=== PATIENT | male | born 1960 | race Caucasian/White ===

== ENCOUNTER → 2018-08-29 08:22 | Outpatient (CLI) | payer BC ==
--- NOTE | 2018-09-01 10:54 | ST ---
PATIENT:RICARDO COREAS MEDICAL RECORD: [id number] SEX: M [facility] ORDER #: ADMISSION DATE: 08/29/18 AGE OF PATIENT: 58 REFERRING PHYSICIAN: INTERPRETING PHYSICIAN: MCKINLEY ALFREDO MD DATE OF SERVICE: 08/29/2018 PROCEDURE: Nuclear stress test. INDICATION: Angina, hypertension, and hyperlipidemia. He was exercised on a standard Addison protocol for 8 minutes achieving greater than 85% max target heart rate response with 33 mCi of sestamibi injected at peak stress, 11 mCi used previously for rest images. FINDINGS: Gated SPECT reveals a preserved ejection fraction of 54% with good wall motioning and thickening and brightening throughout all segments. SPECT imaging: Cardiolite was used as myocardial perfusion agent. There is reversibility anteriorly as well as inferiorly. This includes the basal, mid, apical, anterior segments as well as the basal, mid, apical, inferior segments. The degree of reversibility is mild. The amount of myocardium involved is very large. OVERALL IMPRESSION: This is an abnormal nuclear stress test. Reversibility inferiorly and anteriorly with preserved ejection fraction suggestive of hemodynamically significant coronary disease and possibly multivessel disease. We will proceed with coronary angiography as followup study. TRANSINT:[id number] Voice Confirmation ID: [id number] DOCUMENT ID: [id number] MCKINLEY ALFREDO MD at 1054 CC: [id number] DICTATION DATE: 08/31/18 1159 [employer]AIL [employer] RESTAURANT ASSOCIATE: 09/01/18 0131 DEP CLI 08/29/18 [place] [id number] [place] [id number]
== END | disposition home or self-care (01) ==
LOC: D.HCCARDIO 08:22
PROVIDERS: ATTEND Internal Medicine Interventional Cardiology
DX: Z03.89 Encounter for observation for other suspected diseases and conditions ruled out (principal)

== ENCOUNTER 2018-09-19 07:25 | Outpatient (CLI) | payer BC ==
[~2018-09-19] VITALS: Ht 188 cm; Wt 98.6 kg
--- NOTE | ~2018-09-19 | HEMODYNAMI ---
PATIENT:POONAM COREAS MEDICAL RECORD: [id number] : 56 LOCATION:D.CAT ADMISSION DATE: 09/19/18 Generatedon:09/19/20189:31 Patient name: POONAM COREAS Patient #: [id number] SSN: : 1960 Date of study: 09/19/2018 Page: Of Hemodynamic Procedure Report Patient Data Patient Demographics Procedure consent was obtained First Name: POONAM Gender: Male Last Name: JOSS : 1960 [facility] Initial: KIMMY Age: 58 year(s) ANA Race: Unknown Patient #: [id number] Additional ID: [id number] Contact details [address]: [address] [place] [address] State: [place] City: [place] Zip code: [address] Past Medical History Allergies: No known allergies Admission Admission Data Admission Date: 09/19/2018 Admission Time: 7:25 Admit Source: Other Lab Results Lab Result Date: 09/19/2018 Lab Result Time: 0:00 Biochemistry Name Units Result Min Max BUN mg/dl 8 --(*---)-- 7 18 Creatinine mg/dl 1.4 --(----)*- 0.6 1.3 CBC Name Units Result Min Max Hemoglobin g/dl 15.1 --(-*--)-- 13.5 17.5 Procedure Procedure Types Cath Procedure Diagnostic Procedure [facility] w/Coronaries FFR/IVUS Intra-Coronary IVUS Initial PCI Procedure Coronary Stent Coronary Stent Initial Procedure Description Procedure Date Procedure Date: 09/19/2018 Procedure Start Time: 9:10 Procedure End Time: 9:28 Procedure Staff Name Function Kelvin Recio MD Performing Physician Ann Trevizo RT Monitor Armando Corado RT Scrub Jeanmarie Block RN Nurse Procedure Data Cath Procedure Fluoroscopy Diagnostic fluoroscopy Total fluoroscopy Time: 5 time: 5 min min Diagnostic fluoroscopy Total fluoroscopy dose: 834 dose: 834 mGy mGy Contrast Material Contrast Material Type Amount (ml) Isovue 300 92 Entry Location Entry Primary Successful Side Size Upsize Upsize Entry Closure Bay ccessful Closure Location (Fr) 1 (Fr) 2 (Fr) Remarks Device Remarks Radial Right 6 Fr Mechanical TR artery Short Compression Estimated blood loss: 10 ml Diagnostic catheters Device Type Used For End Catheter Placement DIAGNOSTIC [place] 110cm 5 Procedure Fr catheter ([id number]) Procedure Complications No complications Procedure Medications Medication Administration Route Dosage 0.9% NaCl I.V. 100 ml/hr Oxygen etCO2 Nasal cannula 2 l/min Heparin Flush Bag added to field 2 bags (1000units/500ml NS) Lidocaine 2% added to field 20 Radial Cocktail added to field 1 syringe (Verapomil 2mg/Nitro 400mcg/Heparin 1500units) Radial Cocktail I.A. 1 syringe (Verapomil 2mg/Nitro 400mcg/Heparin 1500units) Versed I.V. Fentanyl I.V. 100 mcg Heparin Bolus I.V. 4000 units Integrilin (Bolus I.V. 9 ml 2mg/ml) Integrilin (Bolus wasted 1 ml 2mg/ml) Plavix P.O. 600 mg Hemodynamics Rest HGB: 15.1 (g/dl) Heart Rate: 66 (bpm) Pressure Samples Time Site Value (mmHg) Purpose Heart Use Rate(bpm) 9:12 LV 94/-14,10 Snapshot 62 9:12 AO 91/62(76) Pullback 63 9:12 LV 110/8,14 Pullback 63 Gradients Valve Time Site 1 Site 2 Mean SEP/DFP Peak To Heart Use (mmHg) (sec/min) Peak Rate (mmHg) (bpm) Aortic 9:12 LV AO 13 20 19 63 110/8,14 91/62(76) Calculations Valve P-P Mean Valve Index Valve Source Name Gradient Area Flow (cm2) Aortic 19 13 19 13 Snapshots Pre Cath Intra NCS Post Cath Vital Signs Time Heart Resp SPO2 etCO2 NIBP (mmHg) Rhythm Pain Sedation Rate (ipm) (%) (mmHg) Status Level (bpm) 9:00:50 62 19 94 29.3 156/91(106) NSR 0 (11) 10(A) , No pain 9:05:04 64 19 95 23.2 151/86(130) NSR 0 (11) 10(A) , No pain 9:09:20 59 10 96 31.5 137/81(112) NSR 0 (11) 10(A) , No pain 9:13:36 60 17 95 39 118/67(88) NSR 0 (11) 9(A) , No pain 9:17:40 62 18 96 10.5 127/80(97) NSR 0 (11) 9(A) , No pain 9:21:48 61 18 96 10.5 129/79(107) NSR 0 (11) 9(A) , No pain 9:25:56 59 19 96 39 136/82(110) NSR 0 (11) 9(A) , No pain Medications Time Medication Route Dose Verified Delivered Reason Note s Effectiveness by by 8:58:54 0.9% NaCl I.V. 100 Jeanmarie Jeanmarie Per physician ml/hr Mckayla Block RN RN 8:59:07 Oxygen etCO2 2 l/min Jeanmarie Jeanmarie for low 02 sats Nasal Mckayla Block cannula RN RN 8:59:19 Heparin Flush added 2 bags Jeanmarie Jeanmarie used for Bag to Mckayla Block procedure (1000units/500ml field MCADAMS RN NS) 8:59:28 Lidocaine 2% added 20ml Jeanmarie Jeanmarie for local to vial Lorpanda Block anesthetic field MCADAMS RN 8:59:38 Radial Cocktail added 1 Jeanmarie Jeanmarie used for (Verapomil to syringe Mckayla Block procedure 2mg/Nitro field MCADAMS RN 400mcg/Heparin 1500units) 9:10:03 Fentanyl I.V. 100 mcg Jeanmarie Jeanmarie for sedation Mckayla Block RN RN 9:10:56 Versed I.V. Jeanmarie Jeanmarie for sedation Mckayla Block RN RN 9:11:19 Radial Cocktail I.A. 1 Jeanmarie Kelvin for (Verapomil syringe Mckayla Recio MD vasodilation 2mg/Nitro RN 400mcg/Heparin 1500units) 9:23:29 Heparin Bolus I.V. 4000 Jeanmarie Jeanmarie for units Mckayla Block anticoagulation RN RN 9:23:44 Integrilin I.V. 9 ml Jeanmarie Jeanmarie for (Bolus 2mg/ml) Mckayla Block antiplatelet RN RN therapy 9:23:56 Integrilin wasted 1 ml Jeanmarie Jeanmarie to sharp's (Bolus 2mg/ml) Mckayla Block RN RN 9:27:15 Plavix P.O. 600 mg Jeanmarie Jeanmarie for Mckayla Block antiplatelet RN RN therapy Procedure Log Time Note 8:31:58 Informed consent obtained and on chart 8:32:01 Admit Source: Other 8:: Diagnostic Cath status Elective 8:32:30 Time tracking: Regular hours (M-F 7:00 - 5:00) 8:32:34 Plan of Care:Hemodynamics will remain stable., Cardiac rhythm will remain stable., Comfort level will be maintained., Respiratory function will remain adequate., Patient/ family verbilizes understanding of procedure., Procedure tolerated without complication., Recovers from procedure without complications.. 8:33:12 H&P Date Dictated: 09/19/2018 New H&P dictated by physician.. 8:58:54 0.9% NaCl 100 ml/hr I.V. was administered by Jeanmarie Block RN; Per physician; 8:59:07 Oxygen 2 l/min etCO2 Nasal cannula was administered by Jeanmarie Block RN; for low 02 sats; 8:59:19 Heparin Flush Bag (1000units/500ml NS) 2 bags added to field was administered by Jeanmarie Block RN; used for procedure; 8:59:28 Lidocaine 2% 20ml vial added to field was administered by Jeanmarie Block RN; for local anesthetic; 8:59:38 Radial Cocktail (Verapomil 2mg/Nitro 400mcg/Heparin 1500units) 1 syringe added to field was administered by Jeanmarie Block RN; used for procedure; 8:59:40 Patient received from Pre/Post Procedure Room to [facility] 2 Alert and oriented. Tansferred to table in Supine position. 8:59:42 Warm blankets applied, and isaiah hugger turned on for patient comfort. 8:59:42 Vital chart was started 8:59:43 Correct patient and procedure confirmed by team. 8:59:44 ECG and BP/O2 sat monitors applied to patient. 8:59:48 Baseline sample Acquired. 9:00:27 Rhythm: sinus rhythm 9:00:29 Full Disclosure recording started 9:00:37 Family in waiting room. 9:00:39 Patient NPO since Midnight. 9:00:52 Patient allergic to No known allergies 9:01:22 Is the patient allergic to Iodine/contrast media? No. 9::25 Was the patient premedicated? Yes 9:01:27 Is patient on blood thinner?No 9:01:44 ACC The patient was administered the following blood thiners within the last 24 hours: None 9:01:46 Patient diabetic? No. 9::53 Snore? Yes 9:01:55 Sleep apnea? No 9:02:02 Pre procedure: right dorsailis pedis pulse 2+ Normal; easily identifiable; not easily obliterated 9:02:12 IV patent on arrival in left forearm with 0.9% NaCl at [facility]. 9:04: Lab Result : Creatinine 1.4 mg/dl 9:04: Lab Result : BUN 8 mg/dl 9:04: Lab Result : Hemoglobin 15.1 g/dl 9:04:05 Lab results completed and on chart. 9:04:09 Right Radial & Right Groin area was prepped with chlora-prep and draped in sterile fashion 9:04:13 Alarms reviewed by R. N. 9:04:14 Sharps counted by scrub and verified by R.N. 9:04:16 Physician paged 9:07:18 Zero performed for pressure channel P1 9:09:34 Physician arrived 9:09:35 --------ALL STOP TIME OUT------ 9:09:35 Final Timeout: patient, procedure, and site verified with staff and physician. All members of the team are in agreement. 9:09:38 Right Radial & Right Groin site verified by team. 9:09:42 Maximum allowable Isovue 300 dose 300ml. Physician notified. (300ml for normal creatinines. For patients with creatinine of 1.7 or higher multiply weight(kg) x 5 divided by creatinine.) 9:09:47 Fire Safety Assessment: A--An alcohol-based skin anteseptic being used preoperatively., C--Open oxygen or nitrous oxide is being used., D--An ESU, laser, or fiber-optic light is being used. 9:09:51 Physical assessment completed. ASA score P 2 - A patient with mild systemic disease as per Kelvin Recio MD. 9:09:54 Sedation plan: IV Moderate Sedation Medication:Versed, Fentanyl 9:10:00 Use device set Radial Dx or PCI 9:10:03 Fentanyl 100 mcg I.V. was administered by Jeanmarie Block RN; for sedation; 9:10:03 Procedure started. 9:10:09 Local anesthetic to right radial artery with Lidocaine 2% by Kelvin Recio MD.INITIAL ACCESS ONLY 9:10:18 A 6 Fr Short sheath was inserted into the Right Radial artery 9:10:56 Versed I.V. was administered by Jeanmarie Block RN; for sedation; 9:11:19 Radial Cocktail (Verapomil 2mg/Nitro 400mcg/Heparin 1500units) 1 syringe I.A. was administered by Kelvin Recio MD; for vasodilation; 9:11:33 SHEATH 6FR Slender (80-8934) opened to sterile field. 9:11:34 ACIST Syringe (47013) opened to sterile field. 9:11:35 Medline Cath Pack ([id number]) opened to sterile field. 9:11:35 Bag Decanter (2002) opened to sterile field. 9:11:36 DIAGNOSTIC WIRE .035 260cm J wire (844992) opened to sterile field. 9:11:36 ACIST Hand Control (11043) opened to sterile field. 9:11:37 ACIST Manifold (86860) opened to sterile field. 9:11:38 Tegaderm 4 x 4 (1626W) opened to sterile field. 9:11:39 MBrace Wrist Support (915693747) opened to sterile field. 9:11:49 A DIAGNOSTIC [place] 110cm 5 Fr catheter (033379) was advanced over the wire and used for Procedure. 9:12:19 LV gram done using TREJO 9:12:27 EF : 55 % 9:12:32 LCA angiography performed. 9:13:25 GUIDE 6FR XBLAD 3.5 catheter (69510869) opened to sterile field. 9:13:26 [place] IVUS Catheter (60662K) opened to sterile field. 9:13:27 CHOICE PT Extra Support 182cm wire ([id number]) opened to sterile field. 9:13:27 INFLATOR Merit BasixCompak (FE8525) opened to sterile field. 9:13:35 RCA angiography performed. 9:13:38 Catheter removed. 9:13:39 Proceeding to intervention. 9:13:48 6 Fr xblad3.5 guide catheter was inserted over the wire 9:13:54 choice pt ex wire advanced. 9:14:59 IVUS catheter advanced over wire. 9:22:10 IVUS catheter removed over wire. 9::29 Heparin Bolus 4000 units I.V. was administered by Jeanmarie Block RN; for anticoagulation; 9::44 Integrilin (Bolus 2mg/ml) 9 ml I.V. was administered by Jeanmarie Block RN; for antiplatelet therapy; 9::56 Integrilin (Bolus 2mg/ml) 1 ml wasted was administered by Jeanmarie Block RN; to sharp's; 9:24:26 Place stent Inflation Number: 1 A INTEGRITY RX 3.5 x 12 stent ([id number]) was prepped and advanced across the Mid LAD. The stent was deployed at 13 OMA for 0:05 (min:sec). 9:25:02 TR BAND Standard ([id number]) opened to sterile field. 9:25:12 Wire removed. 9:25:13 Guide catheter removed. 9:25:26 Sheath removed intact; hemostasis achieved with Mechanical Compression to the Right Radial artery. 9::29 Procedure ended.(Physican Out) 9:25:39 Fluoroscopy time 05.00 minutes. 9:25:43 Fluoroscopy dose: 834 mGy 9:25:43 Flurop Dose total: 834 9:25:58 Contrast amount:Isovue 300 92ml. 9:27:15 Plavix 600 mg P.O. was administered by Jeanmarie Block RN; for antiplatelet therapy; 9:27:20 TR band inflated with 10cc of air. 9:27:21 Insertion/operative site no bleeding no hematoma. 9:27:23 Post Procedure Pulses reassessed and unchanged 9::26 Post-procedure physical assessment completed. ASA score P 2 - A patient with mild systemic disease as per Kelvin Recio MD. 9:27:29 Estimated blood loss: 10 ml 9:27:52 Procedure type changed to Cath procedure, Diagnostic procedure, LHC, LHC w/Coronaries, FFR/IVUS, Intra-Coronary IVUS Initial, PCI procedure, Coronary Stent, Coronary Stent Initial 9::54 Procedure and supply charges have been captured, reviewed, submitted and are correct. 9:28:18 Procedure Complication : No complications 9:28:20 Vital chart was stopped 9:28:21 See physician's report for complete and final results. 9:28:24 Report given to Pre/Post Procedure Room. 9:28:32 Patient transfered to Pre/Post Procedure Room with Stretcher. 9:28:35 Procedure ended. 9:28:35 Full Disclosure recording stopped 9:28:40 End room use (Document Last) Intervention Summary Intervention Notes Time ActionType Lesion and Equipment Action# Pressure Duration Attributes Used 9:24:26 Place stent Mid LAD INTEGRITY RX 1 13 00:05 3.5 x 12 stent ([id number]) Device Usage Item Name Manufacture Quantity Catalog Number Hospital Part Current Mini mal Lot# / Charge Number Stock Stock Serial# Code SHEATH 6FR Terumo 1 [id number] 402147 110443 5 Slender (80-1060) ACIST Acist 1 87534 558631 167676 826023 20 Syringe Medical (04825) Systems Inc Medline Cath Medline 1 [id number] 983266 89504 742791 5 Pack ([id number]) Bag Decanter Microtek 1 2001S 936868 57419 119337 5 (2001S) Medical Inc. DIAGNOSTIC St Theron 1 076045 221407 100757 357277 30 WIRE .035 260cm J wire (109741) ACIST Hand Acist 1 62129 277127 255007 787758 5 Control Medical (77515) Systems Inc ACIST Acist 1 60922 094035 752762 866621 5 Manifold Medical (00687) Systems Inc Tegaderm 4 x 3M 1 1626W 583922 361743 004809 5 4 (1626W) MBrace Wrist Advanced 1 140-0250-00 134250 91462 869561 5 Support Vascular ([id number]) Dynamics DIAGNOSTIC Terumo 1 28-0476 551551 749970 859349 5 [place] 110cm 5 Fr catheter (970554) GUIDE 6FR Cardinal 1 [id number] 111326 892203 724344 10 XBLAD 3.5 Health catheter (38888926) [place] 1 38298V 142050 330670 878696 8 [place] IVUS Catheter (83078N) CHOICE PT Nogal 1 [id number] 816412 582565 403215 5 Extra Scientific Support 182cm wire ([id number]) INFLATOR Merit 1 [id number] 272560 624221 362902 15 [facility] Medical BasixCompak (OP9200) INTEGRITY RX Medtronic 1 [id number] 062160 738562 295976 5 [id number] 3.5 x 12 stent ([id number]) TR BAND Terumo 1 [id number] 977465 172052 956752 40 Standard ([id number]) Signature Audit [place] Stage Time Signature Unsigned Intra-Procedure 09/19/2018 Ann Trevizo 9:31:12 AM RT(R) Signatures Monitor : Ann Trevizo Signature : RT Date : Time : [address] [place] [address]
[2018-09-19] MEDS ORDERED: BYSTOLIC10 MG PO (07:48)
[2018-09-19] MEDS ORDERED: RANITIDINE HCL150 M1 PO (07:48)
[2018-09-19 08:08] VITALS: BP 159/95; Ht 188 cm; Wt 98.6 kg
[2018-09-19 08:34] LABS: ANION GAP 11.6 mmol/L (8-16); CALCIUM 8.4 mg/dL (8.5-10.1); CARBON DIOXIDE 26.7 mmol/L (21.0-32.0); CREATININE - SERUM 1.4 mg/dL (0.6-1.3); HEMATOCRIT 46.8 % (42.0-54.0); HEMOGLOBIN 15.1 g/dL (13.5-17.5); LYMPHOCYTES 26.2 % (15-50); MCHC 32.3 g/dL (31.0-37.0); MCV 83.7 fL (80.0-100.0); MEAN PLATELET VOLUME 11.2 fL (7.4-10.4); NEUTROPHILS 64.4 % (40-80); PLATELET COUNT 179 10x3/uL (130-400); POTASSIUM - SERUM 4.3 mmol/L (3.5-5.1); RBC 5.59 10x6/uL (4.20-6.10); RDW 15.5 % (11.5-14.5); WBC 5.3 10x3/uL (4.8-10.8)
[2018-09-19] MEDS ORDERED: PLAVIX75 MG PO (09:40)
[2018-09-19] MEDS ORDERED: ASPIRIN81 MG PO (09:40)
--- NOTE | 2018-09-19 09:58 | NUR ---
PT SLEEPING, AWAKENS EASILY, DENIES ANY C/O. VSS, TR BAND CDI, FINGERS WARM AND CAP REFILL IS BRISK. PO FLUIDS SERVED PER PT REQUEST AT BEDSIDE, CALL LIGHT IN REACH.
--- NOTE | 2018-09-19 11:00 | NUR ---
1020 PT SLEEPING, AWAKENS EASILY, DENIES ANY C/O. VSS. AT BEDSIDE. 1100 HOB ELEVATED AND SANDWICH SERVED. PT IS ALERT AND DENIES ANY C/O. TR BAND IS CDI, FINGERS WARM AND CAP REFILL IS BRISK. VSS. DR ALFREDO HAS ROUNDED ON PT.
--- NOTE | 2018-09-19 11:40 | NUR ---
PT TARUN SANDWICH WITH NO C/O. TR BAND IS CDI TO RIGHT WRIST, FINGERS WARM AND CAP REFILL IS BRISK. DENIES NEEDS AT THIS TIME. AT BEDSIDE, VSS.
--- NOTE | 2018-09-19 12:17 | NUR ---
TR BAND IS CDI TO RIGHT WRIST, HAND IS WARM AND CAP REFILL IS BRISK. VSS. DENIES NEEDS AT THIS TIME.
--- NOTE | 2018-09-19 12:39 | NUR ---
2 CC AIR REMOVED FROM TR BAND WITH NO BLEEDING OR HEMATOMA NOTED
--- NOTE | 2018-09-19 12:44 | NUR ---
2 CC AIR REMOVED FROM TR BAND WITH NO BLEEDING NOTED. PATIENT DENIED PAIN OR NEEDS. FAMILY IS PRESENT AT BEDSIDE
--- NOTE | 2018-09-19 12:50 | NUR ---
PT HAS VOIDED 600 CC CLEAR YELLOW URINE TO URINAL.
--- NOTE | 2018-09-19 12:53 | NUR ---
2 CC AIR REMOVED FROM TR BAND WITH NO BLEEDING NOTED
--- NOTE | 2018-09-19 13:12 | NUR ---
3 CC OF AIR WEANED FROM TR BAND WITH NO BLEEDING NOTED. FINGERS WARM AND CAP REFILL IS BRISK. DC INSTRUCTIONS REVIEWED WITH PT AND WHO VERBALIZE UNDERSTANDING. STENT CARD AND PLAVIX PRESCRIPTION TO PATIENT. PT AND VERBALIZE UNDERSTANDING OF STARTING PLAVIX TOMORROW.
--- NOTE | 2018-09-19 13:20 | NUR ---
ALL REMAINING AIR WEANED FROM TR BAND WITH NO BLEEDING NOTED. IV DC'D WITH CATH INTACT. PT IS DRESSING FOR DC WITH ASSIST.
--- NOTE | 2018-09-19 13:42 | NUR ---
PT HAS DRESSED FOR DC TO HOME. 2X2 AND TEGADERM REMAIN CDI TO RIGHT WRIST, RADIAL PULSE PALPABLE. PT IS ALERT AND DENIES ANY C/O. PT ESCORTED TO PRIVATE AUTO VIA WC BY NURSE WITH DRIVNG HIM HOME. PT HAS ALL PERSONAL BELONGINGS AND DC INSTRUCTIONS.
--- NOTE | 2018-09-19 15:03 | HP ---
PATIENT: POONAM KC MEDICAL RECORD: [id number] ACCOUNT: [id number] LOCATION:[place] : 56 ADMISSION DATE: 09/19/18 PCP: ALIYAH GALLARDO HISTORY AND PHYSICAL EXAMINATION DIAGNOSES: 1. Angina. 2. Abnormal nuclear stress test. 3. Hypertension. 4. Hyperlipidemia. HISTORY OF PRESENT ILLNESS: Mr. Kc presents with anginal symptomatology and dysrhythmia, found to have abnormal nuclear stress test, now brought for cardiac catheterization. PHYSICAL EXAMINATION: GENERAL APPEARANCE: Well-nourished, well-developed, appears stated age. Level of distress, comfortable. PSYCHIATRIC: Mental status, alert, normal affect. Orientation, oriented to time, place and person. EYES: Lids and conjunctiva, noninjected. No discharge, no pallor. ENT: Lips, teeth, gums, normal dentition. Oropharynx, no cyanosis, no pallor. NECK: Carotid arteries, bilateral normal upstroke, no bruits, no thrills. JUGULAR VEINS: No jugular venous pressure or distention. CERVICAL LYMPH NODES: Nontender, nonenlarged. THYROID: Not enlarged. Nontender. No nodules. LUNGS: Respiratory effort, unlabored. CHEST: Normal curvature. No thoracic deformity. No chest wall tenderness. Percussion, resonant. Auscultation, clear. No wheezes, no rales, no rhonchi. CARDIOVASCULAR: Precordial exam, nondisplaced. No heaves or pericardial thrills. Rate and rhythm, regular. Heart sounds, normal S1, normal S2. No S3, no gallop, no rub. Systolic murmur, not heard. Diastolic murmur, not heard. EXTREMITIES: No cyanosis, no edema. Peripheral pulses, full and equal in all extremities, except as noted. No bruits appreciated. ABDOMEN: Soft, nondistended. Normal aorta. No bruit. Nontender. No masses. Liver, nontender, no hepatomegaly. Spleen, nontender, no splenomegaly. MUSCULOSKELETAL: No joint tenderness. No joint swelling. No erythema. NEUROLOGICAL: Normal gait, normal strength, normal tone. SKIN: Warm and dry. OVERALL IMPRESSION: Symptomatology compatible with angina with abnormal nuclear stress test with a high likelihood of hemodynamically significant coronary artery disease. We will proceed with coronary angiography. Further care depends upon findings of the angiography. TRANSINT:[id number] Voice Confirmation ID: [id number] DOCUMENT ID: [id number] HISTORY AND PHYSICAL [id number] POONAM KC JEFFREY MD at 1503 CC: [id number] DICTATION DATE: 09/19/18 0856 MANAGER HIV: 09/19/18 0905 REG [facility] [address] [place] [id number]
--- NOTE | 2018-09-19 15:03 | OP ---
PATIENT NAME: POONAM COREAS MEDICAL RECORD: [id number] :56 LOCATION:D.CAT ADMISSION DATE: SURGEON: MCKINLEY ALFREDO MD DATE OF OPERATION: 09/19/2018 PROCEDURES: 1. PTCA and stent of LAD. 2. Intravascular ultrasound. 3. Left heart catheterization. 4. Selective coronary angiography. 5. Left ventriculogram. INDICATIONS: Angina and coronary artery disease. PROCEDURE PERFORMED: After informed consent was obtained and after detailed explanation of risks, benefits as well as alternative therapies, the patient elected to proceed with angiogram and angioplasty. The right radial area was prepped and draped in normal sterile fashion. Right radial artery was cannulated via modified Seldinger technique with placement of 6-Libyan sheath. All catheters exchanged through this sheath. FINDINGS: Left ventriculogram was performed in standard 30-degree TREJO view, reveals good cardiac wall motion throughout all segments. Overall ejection fraction estimated 60%. SELECTIVE CORONARY ANGIOGRAPHY: 1. Left main has no significant angiographic disease. 2. Left anterior descending has 65% to 70% stenosis confirmed by intravascular ultrasound in the proximal vessel. 3. Left circumflex has mild irregularities, but no flow-limiting stenosis. 4. Right coronary has mild irregularities, but no flow-limiting stenosis. PTCA AND STENT OF THE LAD: The stent used was a 3.5 x 12-mm Integrity. Result was 0% residual stenosis. OVERALL IMPRESSION: Successful PTCA and stent of the LAD going from 65% to 70% initial stenosis proximally to 0% residual stenosis. TRANSINT:[id number] Voice Confirmation ID: [id number] DOCUMENT ID: [id number] MCKINLEY ALFREDO MD at 1503 CC: [id number] DICTATION DATE: 09/19/18 0928 ACID MIXER: 09/19/18 1142 [address] [place] [id number] [place] [address]
== END 2018-09-19 13:40 | disposition home or self-care (01) ==
LOC: D.CATH 07:25
PROVIDERS: ATTEND Internal Medicine Interventional Cardiology
DX: I25.119 Atherosclerotic heart disease of native coronary artery with unspecified angina pectoris (principal); Z01.812 Encounter for preprocedural laboratory examination

== ENCOUNTER 2019-04-09 12:05 | Inpatient (IN) | payer BC ==
[~2019-04-09] VITALS: Ht 188 cm; Wt 101.4 kg
[2019-04-09] VITALS (19 sets, daily range): BP systolic 107–178; BP diastolic 62–101; Ht 188 cm; Wt 101.4 kg
[~2019-04-09 12:05] MED LIST: ASPIRIN81 MG PO; BYSTOLIC10 MG PO; PLAVIX75 MG PO; RANITIDINE HCL150 M1 PO
[2019-04-09] MEDS ORDERED: COZAAR100 MG PO (12:24)
[2019-04-09] MEDS ORDERED: CINNAMON500 MG PO (12:24)
[2019-04-09] MEDS ORDERED: FISH OIL 1,0001 CA1 PO (12:24)
[2019-04-09 12:44] LABS: BASOPHILS 0.1 % (0-2); EOSINOPHILS 0.2 % (0-7); HEMATOCRIT 47.9 % (42.0-54.0); HEMOGLOBIN 15.8 g/dL (13.5-17.5); IMMATURE GRANULOCYTES 0.1 % (0-5); LYMPHOCYTES 11.4 % (15-50); MCH 28.7 pg (26.0-34.0); MCV 86.9 fL (80.0-100.0); MEAN PLATELET VOLUME 11.1 fL (7.4-10.4); MONOCYTES 6.2 % (2-11); PLATELET COUNT 184 10x3/uL (130-400); RBC 5.51 10x6/uL (4.20-6.10); RDW 14.5 % (11.5-14.5)
[2019-04-09 12:50] LABS: INR 1.05 (0.85-1.17); PROTIME 13.2 SECONDS (11.6-15.0)
[2019-04-09 12:51] LABS: APTT 30.4 SECONDS (22.8-39.4)
[2019-04-09 12:57] LABS: ALBUMIN 3.8 g/dL (3.4-5.0); ALKALINE PHOSPHATASE 52 U/L (46-116); ALT (SGPT) 19 U/L (10-68); BILIRUBIN - TOTAL 1.42 mg/dL (0.2-1.3); CALC OSMOLALITY 267 mosm/kg (275-300); CALCIUM 8.6 mg/dL (8.5-10.1); CARBON DIOXIDE 28.3 mmol/L (21.0-32.0); CHLORIDE - SERUM 99 mmol/L (98-107); CREATININE - SERUM 1.3 mg/dL (0.6-1.3); GLUCOSE 103 mg/dL (74-106); POTASSIUM - SERUM 4.3 mmol/L (3.5-5.1); PROTEIN - SERUM 7.5 g/dL (6.4-8.2); SODIUM 134 mmol/L (136-145); UREA NITROGEN 12 mg/dL (7-18); eGFR NON AFRICAN AMERICAN 60 mL/min (90-120)
[2019-04-09 13:09] LABS: CKMB 0.7 U/L (0.0-3.6); CREATINE KINASE 103 UL (21-232); MAGNESIUM - SERUM 1.9 mg/dL (1.8-2.4); TROPONIN-I < 0.017 ng/mL (0.000-0.060)
--- NOTE | 2019-04-09 13:19 | NUR ---
PT LEAVING ED VIA STRETCHER AT THIS TIME.
--- NOTE | 2019-04-09 15:21 | NUR ---
REPORT TO KAT. pT TO BE ADMITTED TO ICU ROOM 2306.
[2019-04-09] MEDS ORDERED: VITAMIN D31000 UNI2 PO (15:55)
[2019-04-09 20:38] LABS: CKMB 0.5 U/L (0.0-3.6); CREATINE KINASE 86 UL (21-232)
[2019-04-09 20:42] LABS: TROPONIN-I < 0.017 ng/mL (0.000-0.060)
--- NOTE | 2019-04-09 20:48 | NUR ---
REPORT RECEIVED, PT IN BED WITH HOB UP. DENIES PAIN AT THIS TIME. VSS. CARDENE TITRATED AND STOPPED AT THIS TIME, SEE IV DRIP FLOW SHEET. PT WATCHING TV, RECEIVED SCHEDULED MEDICATIONS. NO NEEDS MADE KNOWN. WILL CONTINUE TO OBSERVE. CALL LIGHT IN REACH.
--- NOTE | 2019-04-09 22:02 | NUR ---
PT SITTING UP IN BED WITH HOB UP, WATCHING TV. NO NEEDS MADE KNONW. VSS. CALL LIGHT IN REACH. WILL CONTINUE TO OBSERVE.
--- NOTE | 2019-04-09 23:29 | NUR ---
PT WITH EYES OPEN. STATES HAS SLEPT BUT WOKE UP AND HAVING DIFFICULTY SLEEPING. COMPLAINS OF HEADACHE 3/10 WITH PRN TYLENOL GIVEN PER AUG. VSS. CALL LIGHT IN REACH. WILL CONTINUE TO OBSERVE.
[2019-04-10] VITALS (11 sets, daily range): BP systolic 111–141; BP diastolic 68–87
--- NOTE | 2019-04-10 02:00 | NUR ---
PT WITH EYES OPEN. HEADACHE 08/03. B/P STABLE OFF DRIP. NO NEEDS MADE KNOWN. CALL LIGHT IN REACH.
[2019-04-10 03:49] LABS: BASOPHILS 0.1 % (0-2); EOSINOPHILS 0.9 % (0-7); HEMATOCRIT 44.3 % (42.0-54.0); HEMOGLOBIN 14.6 g/dL (13.5-17.5); IMMATURE GRANULOCYTES 0.1 % (0-5); LYMPHOCYTES 12.2 % (15-50); MCH 28.2 pg (26.0-34.0); MCV 85.7 fL (80.0-100.0); MEAN PLATELET VOLUME 11.1 fL (7.4-10.4); MONOCYTES 8.4 % (2-11); NEUTROPHILS 78.3 % (40-80); PLATELET COUNT 163 10x3/uL (130-400); RBC 5.17 10x6/uL (4.20-6.10); RDW 14.3 % (11.5-14.5); WBC 8.1 10x3/uL (4.8-10.8)
[2019-04-10 04:33] LABS: ALBUMIN 3.1 g/dL (3.4-5.0); ALKALINE PHOSPHATASE 42 U/L (46-116); ALT (SGPT) 16 U/L (10-68); BILIRUBIN - TOTAL 1.29 mg/dL (0.2-1.3); CALC OSMOLALITY 264 mosm/kg (275-300); CALCIUM 7.5 mg/dL (8.5-10.1); CARBON DIOXIDE 24.4 mmol/L (21.0-32.0); CHLORIDE - SERUM 98 mmol/L (98-107); CKMB 0.5 U/L (0.0-3.6); CREATINE KINASE 83 UL (21-232); CREATININE - SERUM 1.1 mg/dL (0.6-1.3); GLUCOSE 101 mg/dL (74-106); POTASSIUM - SERUM 3.8 mmol/L (3.5-5.1); PROTEIN - SERUM 6.4 g/dL (6.4-8.2); SODIUM 132 mmol/L (136-145); UREA NITROGEN 13 mg/dL (7-18); eGFR NON AFRICAN AMERICAN 72 mL/min (90-120)
[2019-04-10 04:57] LABS: TROPONIN-I < 0.017 ng/mL (0.000-0.060)
--- NOTE | 2019-04-10 05:41 | NUR ---
PT WITH EYES OPEN STATES HEADACHE PAIN 0/10 AT THIS TIME. NO NEEDS OR CONCERNS NOTED. WILL CONTINUE TO OBSERVE.
[2019-04-10] MEDS ORDERED: PROCARDIA XL30 MG PO (12:30)
--- NOTE | 2019-04-10 12:34 | NUR ---
FOLLOW APPT MADE WITH DR ALFREDO FOR 04/23/19 AT 2PM. PT HAS WRITTEN SCRIPT FOR PROCARDIA XL 30MG QD TO TAKE HOME
--- NOTE | 2019-04-10 13:29 | CN ---
PATIENT NAME:POONAM KC MEDICAL RECORD: [id number] : 56 LOCATION:[id number] ADMIT DATE: 04/09/19 ACCOUNT: [id number] CONSULTING PHYSICIAN: MCKINLEY ALFREDO MD REFERRING PHYSICIAN: KARINA PARSON MD DATE OF CONSULTATION: 04/09/2019 CARDIOLOGY CONSULTATION DIAGNOSES: 1. Hypertensive urgency. 2. Essential hypertension. 3. Headache. 4. Coronary artery disease. 5. Previous percutaneous transluminal coronary angioplasty stent. 6. Hyperlipidemia. HISTORY OF PRESENT ILLNESS: Mr. Kc presents with increasing blood pressure and increasing headache along with nausea. These are the symptoms he has when his blood pressure is out of control. He presented with systolic blood pressures in the 160-170 range. Diastolic blood pressures in the 90-110 range. He was recently seen in our office, had the addition of losartan to his Bystolic as well given p.r.n. clonidine. He took clonidine last night, has not taken clonidine today. He is going to CAT scan now secondary to the headache and the hypertensive urgency. If the CAT scan is normal, would institute Procardia-XL 60 mg in addition to his current medications. We would be happy to follow up next week for further blood pressure checks TRANSINT:[id number] Voice Confirmation ID: [id number] DOCUMENT ID: [id number] MCKINLEY ALFREDO MD at 1329 CC: [id number] DICTATION DATE: 04/09/19 1320 LEAF STICKER: 04/09/19 1338 ADM IN [place] [id number] [place] [address]
--- NOTE | 2019-04-10 18:32 | MORECARE ---
CASE MANAGEMENT DISCHARGE SUMMARY PATIENT: POONAM COREAS UNIT: [id number] ADM DATE: 04/09/19 AGE: 59 : 56 SEX: M ROOM/BED: D.2307 AUTHOR: ALEXSANDER NORMAN PHYSICIAN: REFERRING PHYSICIAN: KARINA PARSON MD DATE OF SERVICE: 04/10/19 Discharge Plan Patient Name: POONAM COREAS [facility] [facility] 1960 Planned Disposition: Home Anticipated Discharge Date: Discharge Date: 04/10/2019 Expected LOS: Initial Reviewer: [email or web address] Initial Review Date: 04/10/2019 Generated: 04/10/19 7:31 pm Patient Name: POONAM COREAS Page [id number] at 1832 All edits/amendments must be made on the electronic document DICTATION DATE: 04/10/191830 NURSE EXECUTIVE: GERMANIA 04/10/191830 RPT#: [id number] DC DATE:04/10/19 STATUS: DIS IN [facility] [address] [place] [address] END OF REPORT
--- NOTE | 2019-04-10 18:38 | MORECARE ---
CASE MANAGEMENT DISCHARGE SUMMARY PATIENT: POONAM COREAS UNIT: [id number] ADM DATE: 04/09/19 AGE: 59 : 56 SEX: M ROOM/BED: D.2307 AUTHOR: ALEXSANDER NORMAN PHYSICIAN: REFERRING PHYSICIAN: KARINA PARSON MD DATE OF SERVICE: 04/10/19 Discharge Plan Patient Name: POONAM COREAS Facility: [facility]:[place] : 1960 Planned Disposition: Home Anticipated Discharge Date: Discharge Date: 04/10/2019 Expected LOS: Initial Reviewer: [email or web address] Initial Review Date: 04/10/2019 Generated: 04/10/19 7:38 pm Comments DCP- Discharge Planning Updated by [email or web address]: Jennifer Aguilar on 04/10/19 5:[address] Patient Name: POONAM COREAS Admission Status: ER Accout number: [id number] Admission Date: 04-09-2019 : 1960 Admission Diagnosis: Attending: KARINA PARSON Current LOS: 1 Anticipated DC Date: Planned Disposition: Home Primary Insurance: [employer] [facility] Discharge Planning Comments: CM met with patient at bedside after explaining CM role and obtaining verbal consent. Patient lives at home with his Marcia where he is independent with his care and plans to return there upon discharge. Patient feels this would be a safe discharge. CM discussed availability / needs of home health and medical equipment. Patient denies any discharge needs at this time. Patient states he will have his family drive him home upon discharge. CM will continue to follow and assist as needed with discharge planning / needs. Industrial Maintenance Mechanic: Jennifer Aguilar DCPIA - Discharge Planning Initial Assessment Updated by [email or web address]: Jennifer Aguilar on 04/10/19 6:32 pm * Is the patient Alert and Oriented? Yes * How many steps to enter\exit or inside your home? * PCP RYLEE ADKINS APN * Pharmacy [facility] [address] [address] * Preadmission Environment Home with Family * ADLs Independent * Equipment CPAP * List name and contact numbers for known caregivers / representatives who currently or will assist patient after discharge: MARCIA COREAS - - [phone] * Verbal permission to speak to the caregivers and representatives has been obtained from the patient. Yes * Community resources currently utilized None * Additional services required to return to the preadmission environment? No * Can the patient safely return to the preadmission environment? Yes * Has this patient been hospitalized within the prior 30 days at any hospital? No Last DP export: 04/10/19 5:32 Patient Name: POONAM COREAS Page [id number] at 1838 All edits/amendments must be made on the electronic document DICTATION DATE: 04/10/191837 GRINDER AND HONER OPERATOR AUTOMATIC: GERMANIA 04/10/191837 RPT#: [id number] DC DATE:04/10/19 STATUS: DIS IN [facility] [address] [place] [address] END OF REPORT
[2019-04-11] MEDS ORDERED: HYDRALAZINE HCL25 MG PO (12:20)
--- NOTE | 2019-04-22 17:12 | HP ---
PATIENT: POONAM COREAS MEDICAL RECORD: [id number] ACCOUNT: [id number] LOCATION:[facility] D.2307 : 56 ADMISSION DATE: 04/09/19 PCP: ALIYAH GALLARDO HISTORY AND PHYSICAL EXAMINATION REASON FOR ADMISSION: Headache and elevated blood pressure. HISTORY OF PRESENT ILLNESS: The patient is a 59-year-old male who was followed up by Dr. Yaquelin Rush at [facility] and cardiology, Dr. Recio. He has a history of PTCA as well as essential hypertension. He has had more stress in his work life recently and notes his blood pressure is elevated with headache yesterday. With Dr. Rush's office, she placed him on losartan addition to his other meds. He was also given clonidine 0.1. He had more symptoms today and for that reason came to the Emergency Room at [place]. He was having increasing headache at the back of his head as well as nausea. His pressure was in the 170/115 range. In the ED, he had a CT scan of his brain because of the headache, which returned negative. He was placed on IV Cardene and placed in the ICU. Dr. Recio has seen the patient. I have been asked to see him for medicine unassigned medical physician. He states his headache is feeling better now since having Demerol and blood pressure now is in the 140/80 range. PAST MEDICAL HISTORY: Essential hypertension, CAD, post-PTCA in September of this year, hyperlipidemia, history of diverticulitis from lower GI bleed last year from diverticular disease, history of ventricular arrhythmias, and IBS. SURGICAL HISTORY: He has had colonoscopies, he has had a penile biopsy, colonoscopy times 2. SOCIAL HISTORY: He has never smoked. He drinks occasional alcohol drink maybe 1 can of beer per week. 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 FAMILY HISTORY: Mother with diabetes and stroke. Sister with diabetes. Father healthy. Paternal grandfather with heart disease. Maternal grandmother with colon cancer. HOME MEDICATIONS: Losartan 100 mg a day, aspirin 81 mg daily, MiraLax 17 grams p.o. daily, Viagra 100 mg p.r.n. intercourse, Bystolic 20 mg a day, vitamin D2 one daily, ranitidine 150 mg at bedtime, testosterone 200 mg IM every 2 weeks, cinnamon bark orally daily, omega 3 vitamins daily, and Arimidex 1 mg p.o. daily. REVIEW OF SYSTEMS: GENERAL: Mildly fatigued. HEENT: No visual change. He has had headache behind his eyes and back of his skull. Denies sore throat. RESPIRATORY: No shortness of breath or cough, sputum production or hemoptysis. CARDIAC: No chest pain or palpitations. GASTROINTESTINAL: He has had some nausea with headache, but no vomiting. No fatty food intolerance. GENITOURINARY: No dysuria or nocturia. ENDOCRINE: Denies polyuria, polydipsia, heat or cold intolerance. NEUROLOGIC: Recent headache with elevated blood pressure. History of migraines. PSYCHIATRIC: Denies depressed mood. HISTORY AND PHYSICAL [id number] POONAM COREAS PHYSICAL EXAMINATION: GENERAL: Alert 59-year-old male, in no acute distress. VITAL SIGNS: Blood pressure is 167/103 with a heart rate of 63 and regular rate, temperature is 98.1, respirations are 16, sats 98% on room air. HEENT: Eyes are clear. Pupils reactive. EOMI. Discs are sharp. NECK: No bruits or masses. CHEST: Clear. HEART: Regular without murmur. ABDOMEN: Soft, nontender, no organomegaly. GENITOURINARY: Deferred. EXTREMITIES: No CC&E. NEUROLOGICAL: Intact. Gait not tested. No motor deficits are noted. No memory deficits are noted. INTEGUMENT: No petechiae. LABORATORY DATA: Shows a white count of 8000, H&H of 15 and 47.9 respectively, platelet count 184,000. Chemistry: Sodium is 134, potassium is 4.3, BUN and creatinine are 12 and 1.3, magnesium 1.9, bilirubin is 1.42. Liver functions, cardiac enzymes, and troponin negative. INR is 1.05. DIAGNOSTIC DATA: Imaging of the brain is unremarkable. Chest x-ray shows no active disease. ASSESSMENT: Hypertensive urgency, history of LAD PTCA, history of diverticular bleeding, history of PVCs, diverticulosis. PLAN: The patient admitted to the ICU, was on IV Cardene currently. Dr. Recio plans to switch to p.o. Procardia when the blood pressure stabilizes. Further workup pending clinical course. TRANSINT:[id number] Voice Confirmation ID: [id number] DOCUMENT ID: [id number] KARINA PARSON MD at 1712 CC: [id number] DICTATION DATE: 04/09/191804 OFFICE NURSE: 04/09/191945 DIS IN 04/10/19 [facility] [address] [place] [address]
== END 2019-04-10 13:20 | disposition home or self-care (01) | DRG 305 ==
LOC: D.ER 12:05 → D.ICU 14:45
PROVIDERS: Family Medicine; ADMIT Family Medicine; ATTEND Family Medicine
DX: I16.0 Hypertensive urgency (principal); R11.2 Nausea with vomiting, unspecified; R51 Headache; E78.5 Hyperlipidemia, unspecified; I25.10 Atherosclerotic heart disease of native coronary artery without angina pectoris; Z95.5 Presence of coronary angioplasty implant and graft

== ENCOUNTER 2019-04-11 10:34 | Emergency (ER) | payer BC ==
[~2019-04-11] VITALS: Ht 188 cm; Wt 101.4 kg
[~2019-04-11 10:34] MED LIST changes: +CINNAMON500 MG PO; +COZAAR100 MG PO; +FISH OIL 1,0001 CA1 PO; +PROCARDIA XL30 MG PO; +VITAMIN D31000 UNI2 PO
[2019-04-11 10:39] VITALS: Ht 188 cm; Wt 101.4 kg
[2019-04-11 10:57] LABS: BASOPHILS 0.1 % (0-2); EOSINOPHILS 0.8 % (0-7); HEMATOCRIT 47.2 % (42.0-54.0); HEMOGLOBIN 16.2 g/dL (13.5-17.5); IMMATURE GRANULOCYTES 0.2 % (0-5); LYMPHOCYTES 12.4 % (15-50); MCH 28.9 pg (26.0-34.0); MCHC 34.3 g/dL (31.0-37.0); MCV 84.3 fL (80.0-100.0); MEAN PLATELET VOLUME 10.7 fL (7.4-10.4); MONOCYTES 8.5 % (2-11); PLATELET COUNT 194 10x3/uL (130-400); RDW 14.1 % (11.5-14.5); WBC 9.3 10x3/uL (4.8-10.8)
[2019-04-11 11:08] LABS: INR 1.02 (0.85-1.17); PROTIME 12.9 SECONDS (11.6-15.0)
[2019-04-11 11:09] LABS: APTT 30.4 SECONDS (22.8-39.4)
[2019-04-11 11:13] LABS: CALC OSMOLALITY 253 mosm/kg (275-300); CALCIUM 8.4 mg/dL (8.5-10.1); CARBON DIOXIDE 26.9 mmol/L (21.0-32.0); CHLORIDE - SERUM 94 mmol/L (98-107); GLUCOSE 103 mg/dL (74-106); POTASSIUM - SERUM 3.9 mmol/L (3.5-5.1); SODIUM 127 mmol/L (136-145); UREA NITROGEN 10 mg/dL (7-18); eGFR NON AFRICAN AMERICAN 81 mL/min (90-120)
[2019-04-11 11:26] LABS: ALBUMIN 3.8 g/dL (3.4-5.0); ALKALINE PHOSPHATASE 53 U/L (46-116); ALT (SGPT) 17 U/L (10-68); BILIRUBIN - TOTAL 1.37 mg/dL (0.2-1.3); CKMB 0.8 U/L (0.0-3.6); CREATINE KINASE 95 UL (21-232); MAGNESIUM - SERUM 1.9 mg/dL (1.8-2.4); PROTEIN - SERUM 7.3 g/dL (6.4-8.2)
[2019-04-11 11:29] LABS: TROPONIN-I < 0.017 ng/mL (0.000-0.060)
[2019-04-11] MEDS ORDERED: HYDRALAZINE HCL25 MG PO (12:20)
[2019-04-11 12:45] VITALS: BP 141/83
== END 2019-04-11 12:45 | disposition home or self-care (01) ==
LOC: D.ER 10:34
PROVIDERS: Emergency Medicine
DX: I10 Essential (primary) hypertension (principal); E87.1 Hypo-osmolality and hyponatremia